=== PATIENT | male | born 1955 | race Caucasian/White ===

== ENCOUNTER 2018-07-03 09:00 | Day surgery (SDC) | payer OTHER ==
[2018-07-03] MEDS ORDERED: FENTAnyl 50 MCG/ML VIAL (10:38)
[2018-07-03] MEDS ORDERED: MIDAZOLAM 1 MG/ML 2 ML INJ ×2 (10:38)
== END 2018-07-03 10:56 | disposition home or self-care (01) ==
LOC: GIL 09:00
DX: Z12.11 Encounter for screening for malignant neoplasm of colon (principal); K57.90 Diverticulosis of intestine, part unspecified, without perforation or abscess without bleeding; K64.8 Other hemorrhoids; E11.9 Type 2 diabetes mellitus without complications
CPT/HCPCS: 45378; 82962

== ENCOUNTER 2018-10-03 22:05 | Emergency (ER) | payer OTHER ==
[2018-10-04] MEDS: SOD CHLORIDE 0.9% 500 ML IV (00:15)
== END 2018-10-04 01:50 | disposition home or self-care (01) ==
LOC: E/R 22:05
DX: F12.90 Cannabis use, unspecified, uncomplicated (principal); E11.9 Type 2 diabetes mellitus without complications; Z79.84 Long term (current) use of oral hypoglycemic drugs
CPT/HCPCS: 99284; 99284-25